=== PATIENT | female | born 1995 | race Caucasian/White ===

== ENCOUNTER 2017-05-17 16:14 | Emergency (ER) | payer OTHER ==
[~2017-05-17] VITALS: Ht 165.1 cm; Wt 112.9 kg
--- NOTE | 2017-05-17 16:43 | PHYS DOC ---
Past Medical History Past Medical History: Asthma Past Surgical History: Alcohol Use: Occasionally Drug Use: None Adult General Chief Complaint Chief Complaint: FEVER HPI HPI Patient is a 21 year old female presents to the emergency room with a 24-hour history of fever. She states that she developed nausea and vomiting today. She has had 6 episodes of vomiting. She reports no abdominal pain. No chest pain. No upper respiratory symptoms. She denies urinary symptoms. Review of Systems Review of Systems Constitutional: Fever without chills Eyes: Denies change in visual acuity, redness, or eye pain [] HENT: Denies nasal congestion or sore throat [] Respiratory: Denies cough or shortness of breath [] Cardiovascular: Denies chest pain, denies edema GI: Denies abdominal pain, nausea, vomiting, bloody stools or diarrhea [] : Denies dysuria or hematuria [] Musculoskeletal: Denies back pain or joint pain [] Integument: Denies rash or skin lesions [] Neurologic: Denies headache, focal weakness or sensory changes [] Endocrine: Denies polyuria or polydipsia [] Current Medications Current Medications Current Medications Medications (Trade) Dose Ordered Sig/Thuan Start Time Stop Time Status Last Admin Dose Admin Ibuprofen (Motrin) 600 mg 1X ONCE 05/17/17 17:00 05/17/17 17:01 DC 05/17/17 17:32 600 MG Ondansetron HCl (Zofran) 4 mg 1X ONCE 05/17/17 17:00 05/17/17 17:01 DC 05/17/17 17:32 4 MG Sodium Chloride 1,000 ml @ 1,000 mls/hr 1X ONCE 05/17/17 17:00 05/17/17 17:59 DC 05/17/17 17:31 1,000 MLS/HR Allergies Allergies Allergies Coded Allergies Type Severity Reaction Last Updated Verified sulfamethoxazole Allergy Intermediate hives 05/17/17 Yes trimethoprim Allergy Intermediate hives 05/17/17 Yes Physical Exam Physical Exam Constitutional: Well developed, well nourished, no acute distress, non-toxic appearance. [] HENT: Normocephalic, atraumatic, bilateral external ears normal, mucous membranes dry. Posterior pharynx erythematous with white exudate on the right tonsil. Uvula is midline. Eyes: PERRLA, EOMI, conjunctiva normal, no discharge. [] Neck: Normal range of motion, no tenderness, supple, no stridor. [] Cardiovascular tachycardia, no murmur [] Lungs & Thorax: Bilateral breath sounds clear to auscultation [] Abdomen: Bowel sounds normal, soft, no tenderness, no masses, no pulsatile masses. [] Skin: Warm, dry, no erythema, no rash. [] Back: No tenderness, no CVA tenderness. [] Extremities: No tenderness, no cyanosis, no clubbing, ROM intact, no edema. [] Neurologic: Alert and oriented X 3, normal motor function, normal sensory function, no focal deficits noted. [] Psychologic: Affect normal, judgement normal, mood normal. [] Current Patient Data Vital Signs Vital Signs Date Time Temp Pulse Resp B/P (MAP) Pulse Ox O2 Delivery O2 Flow Rate FiO2 05/17/17 16:30 99.9 123 22 128/62 (84) 98 Room Air 99.9 Lab Values Laboratory Tests Test 05/17/17 15:55 05/17/17 16:35 05/17/17 17:25 POC Urine HCG, Qualitative Hcg negative (Negative) Urine Collection Type Unknown Urine Color Yellow Urine Clarity Clear Urine pH 6.5 Urine Specific [place] 1.020 Urine Protein 30 mg/dL (NEG-TRACE) Urine Glucose (UA) Negative mg/dL (NEG) Urine Ketones (Stick) Negative mg/dL (NEG) Urine Blood Negative (NEG) Urine Nitrite Negative (NEG) Urine Bilirubin Negative (NEG) Urine Urobilinogen Dipstick 2.0 mg/dL (0.2 mg/dL) Urine Leukocyte Esterase Negative (NEG) Urine RBC Occ /HPF (0-2) Urine WBC Occ /HPF (0-4) Urine Squamous Epithelial Cells Mod /LPF Urine Bacteria Few /HPF (0-FEW) Urine Mucus Marked /LPF White Blood Count 9.9 x10^3/uL (4.0-11.0) Red Blood Count 3.85 x10^6/uL (3.50-5.40) Hemoglobin 11.7 g/dL (12.0-15.5) L Hematocrit 34.6 % (36.0-47.0) L Mean Corpuscular Volume 90 fL (79-100) Mean Corpuscular Hemoglobin 31 pg (25-35) Mean Corpuscular Hemoglobin Concent 34 g/dL (31-37) Red Cell Distribution Width 14.1 % (11.5-14.5) Platelet Count 225 x10^3/uL (140-400) Neutrophils (%) (Auto) 81 % (31-73) H Lymphocytes (%) (Auto) 10 % (24-48) L Monocytes (%) (Auto) 8 % (0-9) Eosinophils (%) (Auto) 0 % (0-3) Basophils (%) (Auto) 0 % (0-3) Neutrophils # (Auto) 8.0 x10^3uL (1.8-7.7) H Lymphocytes # (Auto) 1.0 x10^3/uL (1.0-4.8) Monocytes # (Auto) 0.8 x10^3/uL (0.0-1.1) Eosinophils # (Auto) 0.0 x10^3/uL (0.0-0.7) Basophils # (Auto) 0.0 x10^3/uL (0.0-0.2) Sodium Level 139 mmol/L (136-145) Potassium Level 3.6 mmol/L (3.5-5.1) Chloride Level 105 mmol/L (98-107) Carbon Dioxide Level 24 mmol/L (21-32) Anion Gap 10 (6-14) Blood Urea Nitrogen 12 mg/dL (7-20) Creatinine 1.1 mg/dL (0.6-1.0) H Estimated GFR (Cockcroft-Gault) 63.3 BUN/Creatinine Ratio 11 (6-20) Glucose Level 94 mg/dL (70-99) Calcium Level 8.6 mg/dL (8.5-10.1) Total Bilirubin 0.7 mg/dL (0.2-1.0) Aspartate Amino Transferase (AST) 39 U/L (15-37) H Alanine Aminotransferase (ALT) 52 U/L (14-59) Alkaline Phosphatase 75 U/L (46-116) Total Protein 7.8 g/dL (6.4-8.2) Albumin 3.8 g/dL (3.4-5.0) Albumin/Globulin Ratio 1.0 (1.0-1.7) Laboratory Tests 05/17/17 17:25 Laboratory Tests 05/17/17 17:25 EKG EKG [] Radiology/Procedures Radiology/Procedures [] Course & Med Decision Making Course & Med Decision Making Pertinent Labs and Imaging studies reviewed. (See chart for details) [] The patient is resting comfortably and feels better he is alert and in no distress. Repeat examination is unremarkable and benign; in particular, there is no discomfort at McBurney's point. The history, exam, diagnostic testing and current condition do not suggest acute appendicitis, bowel obstruction, tubo- ovarian abscess, ectopic , ovarian torsion, acute cholecystitis, bowel perforation, major GI bleed, severe diverticulitis, sepsis or other significant pathology to want further testing, continued ED treatment, admission or surgical evaluation at this point. Vital signs been stable. The patient does not have uncontrollable pain, intractable vomiting or other significant symptoms. The patient's condition is stable and appropriate for discharge. The patient will pursue further outpatient evaluation with her primary care provided or other designated or consulting physician is indicated in the discharge instructions. Dragon Disclaimer Dragon Disclaimer This electronic medical record was generated, in whole or in part, using a voice recognition dictation system. Departure Departure Impression: Primary Impression: Viral syndrome Disposition: 01 HOME, SELF-CARE Condition: STABLE Referrals: NO PCP (PCP) Patient Instructions: Viral Syndrome Scripts Ondansetron (ZOFRAN ODT) 4 Mg Tab.rapdis 1 TAB SL Q8HRS, #15 TAB Prov: JERRI KAY APRN 05/17/17 JERRI KAY APRN May 17, 2017 16:43
[2017-05-17 16:54] LABS: BILIRUBIN,URINE NEGATIVE (NEG); GLUCOSE,URINE NEGATIVE (NEG); NITRITE,URINE NEGATIVE (NEG); PH,URINE 6.5; PROTEIN,URINE 30 mg/dL (NEG-TRACE)
[2017-05-17] MEDS ORDERED: ONDANSETRON PF 4 MG/2 ML VIAL. IV ONE (17:00)
[2017-05-17] MEDS ORDERED: IV NORMAL SALINE 1000ML BAG 1,000 ML IV ONE (17:00)
[2017-05-17] MEDS ORDERED: IBUPROFEN 600 MG TABLET. PO ONE (17:00)
[2017-05-17 17:04] LABS: BACTERIA,URINE FEW /HPF (0-FEW); RBC,URINE OCC /HPF (0-2); SQUAMOUS EPITHELIAL CELL,UR MOD /LPF; WBC,URINE OCC /HPF (0-4)
[2017-05-17 17:36] LABS: BASO % 0 % (0-3); EOS % 0 % (0-3); HEMATOCRIT 34.6 % (36.0-47.0); HEMOGLOBIN 11.7 g/dL (12.0-15.5); LYMPH % 10 % (24-48); MEAN CORPUSCULAR HEMOGLOBIN 31 pg (25-35); MEAN CORPUSCULAR HGB CONC 34 g/dL (31-37); MEAN CORPUSCULAR VOLUME 90 fL (79-100); MONO % 8 % (0-9); NEUT % 81 % (31-73); PLATELET COUNT 225 x10^3/uL (140-400); RED BLOOD COUNT 3.85 x10^6/uL (3.50-5.40); RED CELL DISTRIBUTION WIDTH 14.1 % (11.5-14.5); WHITE BLOOD COUNT 9.9 x10^3/uL (4.0-11.0)
[2017-05-17 17:50] LABS: CALCIUM 8.6 mg/dL (8.5-10.1); CREATININE 1.1 mg/dL (0.6-1.0); GFR 63.3; POTASSIUM 3.6 mmol/L (3.5-5.1)
[2017-05-17 17:56] LABS: ALBUMIN 3.8 g/dL (3.4-5.0); TOTAL BILIRUBIN 0.7 mg/dL (0.2-1.0); TOTAL PROTEIN 7.8 g/dL (6.4-8.2)
[2017-05-17] MEDS ORDERED: ONDA4TAB10 SL (18:22)
[2017-05-17 18:30] VITALS: BP 105/55
[2017-05-18 07:54] LABS: NEGATIVE OBC STREP NEG; POSITIVE OBC STREP POS
== END 2017-05-17 18:36 | disposition home or self-care (01) ==
LOC: ER 16:14
DX: B34.9 Viral infection, unspecified (principal); J45.909 Unspecified asthma, uncomplicated; Z88.2 Allergy status to sulfonamides; Z88.8 Allergy status to other drugs, medicaments and biological substances
CPT/HCPCS: 36415; 80053; 81001; 81025; 85027; 87070; 87880; 96361; 96374; 99284; C1887; J2405; J7030

== ENCOUNTER 2017-05-25 03:47 | Emergency (ER) | payer OTHER ==
[~2017-05-25] VITALS: Ht 165.1 cm; Wt 108.9 kg
[~2017-05-25 03:47] MED LIST: ONDA4TAB10 SL
[2017-05-25 03:53] VITALS: BP 144/80
--- NOTE | 2017-05-25 04:14 | PHYS DOC ---
Past Medical History Past Medical History: Asthma Past Surgical History: Alcohol Use: Occasionally Drug Use: None Adult General Chief Complaint Chief Complaint: ABDOMINAL PAIN HPI HPI Patient is a 21 year old F who presents with left-sided flank pain that got worse tonight at work to the point where she was doubled over in pain. He should states it hurts to walk and stand up straight. Patient denies any dysuria or increased urinary frequency. Patient denies a history of kidney stones. Patient denies any fevers. Patient states the pain has gotten better since coming emergency room. Patient denies any chest pain returns of breath. Review of Systems Review of Systems GEN: Denies fevers, chills, sweats HEENT: Denies blurred vision, sore throat CV: Denies chest pain RESP: Denies shortness of air, cough GI: Left flank pain NEURO: Denies confusion, dizziness MSK: Denies weakness, joint pain/swelling Current Medications Current Medications Current Medications Medications (Trade) Dose Ordered Sig/Thuan Start Time Stop Time Status Last Admin Dose Admin Ceftriaxone Sodium 1 gm/ Sodium Chloride 50 ml @ 100 mls/hr Q24H 05/26/17 06:00 Ceftriaxone Sodium 50 ml @ As Directed STK-MED ONCE 05/25/17 05:30 05/25/17 05:31 DC Ketorolac Tromethamine (Toradol) 30 mg 1X ONCE 05/25/17 04:30 05/25/17 04:31 DC 05/25/17 04:32 30 MG Ondansetron HCl (Zofran) 4 mg 1X ONCE 05/25/17 05:00 05/25/17 05:01 DC 05/25/17 04:32 4 MG Sodium Chloride 1,000 ml @ 1,000 mls/hr 1X ONCE 05/25/17 04:30 05/25/17 05:29 DC 05/25/17 04:32 1,000 MLS/HR Allergies Allergies Allergies Coded Allergies Type Severity Reaction Last Updated Verified sulfamethoxazole Allergy Intermediate hives 05/17/17 Yes trimethoprim Allergy Intermediate hives 05/17/17 Yes Physical Exam Physical Exam GEN.: No apparent distress. Alert and oriented. HEENT: Head is normocephalic, atraumatic NECK: Supple. LUNGS: CTAB. HEART: RRR, S1, S2 present. Peripheral pulses intact ABDOMEN: Soft, left flank tenderness palpation with positive CVA tenderness on the left. Positive bowel sounds. EXTREMITIES: Without any cyanosis. NEUROLOGIC: Normal speech, normal tone PSYCHIATRIC: Normal affect, normal mood. SKIN: No ulcerations Current Patient Data Vital Signs Vital Signs Date Time Temp Pulse Resp B/P (MAP) Pulse Ox O2 Delivery O2 Flow Rate FiO2 05/25/17 03:53 98.4 86 16 144/80 (101) 96 Room Air 98.4 Lab Values Laboratory Tests Test 05/25/17 03:08 05/25/17 03:55 05/25/17 04:20 POC Urine HCG, Qualitative Hcg negative (Negative) Urine Collection Type Unknown Urine Color [place] Urine Clarity Clear Urine pH 6.0 Urine Specific [place] 1.025 Urine Protein 100 mg/dL (NEG-TRACE) Urine Glucose (UA) Negative mg/dL (NEG) Urine Ketones (Stick) 15 mg/dL (NEG) Urine Blood Large (NEG) Urine Nitrite Positive (NEG) Urine Bilirubin Small (NEG) Urine Urobilinogen Dipstick 1.0 mg/dL (0.2 mg/dL) Urine Leukocyte Esterase Moderate (NEG) Urine RBC 11-20 /HPF (0-2) Urine WBC 11-20 /HPF (0-4) Urine Squamous Epithelial Cells Mod /LPF Urine Bacteria Many /HPF (0-FEW) Urine Mucus Mod /LPF White Blood Count 10.3 x10^3/uL (4.0-11.0) Red Blood Count 4.10 x10^6/uL (3.50-5.40) Hemoglobin 12.4 g/dL (12.0-15.5) Hematocrit 37.3 % (36.0-47.0) Mean Corpuscular Volume 91 fL (79-100) Mean Corpuscular Hemoglobin 30 pg (25-35) Mean Corpuscular Hemoglobin Concent 33 g/dL (31-37) Red Cell Distribution Width 14.0 % (11.5-14.5) Platelet Count 291 x10^3/uL (140-400) Neutrophils (%) (Auto) 70 % (31-73) Lymphocytes (%) (Auto) 23 % (24-48) L Monocytes (%) (Auto) 4 % (0-9) Eosinophils (%) (Auto) 2 % (0-3) Basophils (%) (Auto) 0 % (0-3) Neutrophils # (Auto) 7.1 x10^3uL (1.8-7.7) Lymphocytes # (Auto) 2.4 x10^3/uL (1.0-4.8) Monocytes # (Auto) 0.5 x10^3/uL (0.0-1.1) Eosinophils # (Auto) 0.2 x10^3/uL (0.0-0.7) Basophils # (Auto) 0.0 x10^3/uL (0.0-0.2) Sodium Level 140 mmol/L (136-145) Potassium Level 3.6 mmol/L (3.5-5.1) Chloride Level 103 mmol/L (98-107) Carbon Dioxide Level 27 mmol/L (21-32) Anion Gap 10 (6-14) Blood Urea Nitrogen 11 mg/dL (7-20) Creatinine 0.9 mg/dL (0.6-1.0) Estimated GFR (Cockcroft-Gault) 79.8 BUN/Creatinine Ratio 12 (6-20) Glucose Level 97 mg/dL (70-99) Calcium Level 9.7 mg/dL (8.5-10.1) Total Bilirubin 0.4 mg/dL (0.2-1.0) Aspartate Amino Transferase (AST) 20 U/L (15-37) Alanine Aminotransferase (ALT) 50 U/L (14-59) Alkaline Phosphatase 73 U/L (46-116) Total Protein 8.3 g/dL (6.4-8.2) H Albumin 4.0 g/dL (3.4-5.0) Albumin/Globulin Ratio 0.9 (1.0-1.7) L Lipase 75 U/L (73-393) Laboratory Tests 05/25/17 04:20 Laboratory Tests 05/25/17 04:20 EKG EKG [] Radiology/Procedures Radiology/Procedures CT abd and pelvis: IMPRESSION: 1. Mild left hydronephrosis and edema of the renal pelvis and proximal ureter. No nephroureterolithiasis is evident. This could be a sequela of a recently passed urinary calculus or infection. 2. The appendix is negative. 3. Gallstones.[] Course & Med Decision Making Course & Med Decision Making Pertinent Labs and Imaging studies reviewed. (See chart for details) ED course: Patient was seen and examined emergency room CBC, CMP, lipase, UA, and urine for a, CT scan of the abdomen and pelvis without contrast was ordered 0520: Pt was updated on results and explained plan to d/c with abx and the need to f/u with PCP in 1-2 days and return if sx get worse. MDM: After reviewing the chart, CC/HPI/PMH, PE, Labs, CT, I do not think the pt has a severe bacterial infection warranting further workup and/or admission. Pt has a UTI with pyelo but is stable for d/c with oral abx and short term f/u with PCP in 1-2 days. Pt is comfortable being d/c home. questions were answered. [] Dragon Disclaimer Dragon Disclaimer This electronic medical record was generated, in whole or in part, using a voice recognition dictation system. Departure Departure Impression: Primary Impression: UTI (urinary tract infection) Disposition: HOME, SELF-CARE Condition: IMPROVED Referrals: FRANCISCO LEONARDO APRN (PCP) Patient Instructions: Urinary Tract Infection Additional Instructions: Please follow up with your family doctor in 1-2 days Scripts Ciprofloxacin Hcl (CIPRO) 500 Mg Tablet 1 TAB PO BID, #20 TAB Prov: FARHANA ARANA DO 05/25/17 FARHANA ARANA DO May 25, 2017 04:14
[2017-05-25] MEDS ORDERED: KETOROLAC TROMETHAMINE 30 MG/ML INJ. IV ONE (04:30)
[2017-05-25] MEDS ORDERED: IV NORMAL SALINE 1000ML BAG 1,000 ML IV ONE (04:30)
[2017-05-25 04:33] LABS: BASO % 0 % (0-3); EOS % 2 % (0-3); HEMATOCRIT 37.3 % (36.0-47.0); HEMOGLOBIN 12.4 g/dL (12.0-15.5); LYMPH # 2.4 x10^3/uL (1.0-4.8); LYMPH % 23 % (24-48); MEAN CORPUSCULAR HEMOGLOBIN 30 pg (25-35); MEAN CORPUSCULAR HGB CONC 33 g/dL (31-37); MEAN CORPUSCULAR VOLUME 91 fL (79-100); MONO % 4 % (0-9); NEUT % 70 % (31-73); PLATELET COUNT 291 x10^3/uL (140-400); WHITE BLOOD COUNT 10.3 x10^3/uL (4.0-11.0)
[2017-05-25 04:37] LABS: BILIRUBIN,URINE SMALL (NEG); GLUCOSE,URINE NEGATIVE (NEG); NITRITE,URINE POSITIVE (NEG); PROTEIN,URINE 100 mg/dL (NEG-TRACE)
[2017-05-25 04:49] LABS: BACTERIA,URINE MANY /HPF (0-FEW)
[2017-05-25 04:50] LABS: CALCIUM 9.7 mg/dL (8.5-10.1); CREATININE 0.9 mg/dL (0.6-1.0); GFR 79.8; POTASSIUM 3.6 mmol/L (3.5-5.1)
[2017-05-25 04:50] LABS: SQUAMOUS EPITHELIAL CELL,UR MOD /LPF
[2017-05-25 04:56] LABS: ALBUMIN/GLOBULIN RATIO 0.9 (1.0-1.7); TOTAL BILIRUBIN 0.4 mg/dL (0.2-1.0); TOTAL PROTEIN 8.3 g/dL (6.4-8.2)
--- NOTE | 2017-05-25 04:59 | RAD ---
CT abdomen and pelvis without contrast TECHNIQUE: Helical noncontrast CT imaging of the abdomen and pelvis was acquired. HISTORY: Left flank pain. Abdomen findings: There is mild left renal hydronephrosis and mild groundglass edema surrounding the renal pelvis proximal ureter however there is no nephroureterolithiasis. Right kidney, adrenal glands, pancreas, spleen and liver are unremarkable. There are suspected gallstones present with indistinct density of the gallbladder present. GI tract including the appendix demonstrates no obstruction or inflammation, distal tip of the appendix is poorly visualized due to surrounding bowel loops in the right ovary. Subcentimeter right lower quadrant mesenteric lymph nodes without inflammatory change. No abdominal fluid. Lung bases and bones are unremarkable. Pelvis findings: No bladder calculi. Uterus, ovaries, rectum and bones are unremarkable. No pelvic fluid. IMPRESSION: 1. Mild left hydronephrosis and edema of the renal pelvis and proximal ureter. No nephroureterolithiasis is evident. This could be a sequela of a recently passed urinary calculus or infection. 2. The appendix is negative. 3. Gallstones. Exposure: One or more of the following individualized dose reduction techniques were utilized for this examination: 1. Automated exposure control 2. Adjustment of the mA and/or kV according to patient size 3. Use of iterative reconstruction technique Electronically signed by: Vinnie Sloan MD (05/25/2017 4:56 AM) [id number]
[2017-05-25] MEDS ORDERED: ONDANSETRON PF 4 MG/2 ML VIAL. IV ONE (05:00)
[2017-05-25] MEDS ORDERED: CIPR500T94 PO (05:27)
== END 2017-05-25 06:07 | disposition home or self-care (01) ==
LOC: ER 03:47
DX: N39.0 Urinary tract infection, site not specified (principal); J45.909 Unspecified asthma, uncomplicated; Z87.442 Personal history of urinary calculi; Z88.2 Allergy status to sulfonamides; Z88.1 Allergy status to other antibiotic agents
CPT/HCPCS: 36415; 74176; 80053; 81001; 81025; 83690; 85027; 87086; 96361; 96365; 96375; 99285; J0690; J1885; J2405; J7030

== ENCOUNTER → 2017-07-25 | Outpatient (CLI) | payer OTHER ==
[~2017-07-25] MED LIST changes: +CIPR500T94 PO
--- NOTE | 2017-07-25 09:48 | KCIC ---
Three-view right foot dated 07/25/2017. No comparison available. Clinical indication: Pain after injury 2 weeks ago. FINDINGS: 3 views of right foot show normal bony alignment. There is slight cortical irregularity and subtle radiolucency near the base of the fifth proximal phalanx, without displacement. There is also a subtle radiolucency through the shaft of the fourth proximal phalanx seen on one view. Osseous structures otherwise intact. IMPRESSION: 1. Subtle areas of radiolucency within the fourth and fifth proximal phalanx described above. Findings could be related to old healed or subacute injury or acute nondisplaced fractures. Recommend physical exam correlation. Electronically signed by: Eldon Rebolledo MD (07/25/2017 9:45 AM) [id number]
== END | disposition home or self-care (01) ==
LOC: KCIC 08:24
PROVIDERS: ATTEND Nurse Practitioner Family
DX: M79.671 Pain in right foot (principal)
CPT/HCPCS: 73630

== ENCOUNTER 2017-12-07 16:41 | Emergency (ER) | payer OTHER ==
[2017-12-07 18:26] LABS: INFLUENZA A PATIENT NEGATIVE (NEGATIVE); OBC FLU VALID
[2017-12-07 18:30] LABS: INFLUENZA B PATIENT POSITIVE (NEGATIVE)
== END 2017-12-07 18:55 | disposition home or self-care (01) ==
LOC: ER 18:55
DX: J10.1 Influenza due to other identified influenza virus with other respiratory manifestations (principal); J45.909 Unspecified asthma, uncomplicated; Z88.1 Allergy status to other antibiotic agents; Z88.2 Allergy status to sulfonamides
CPT/HCPCS: 87804; 87804-59; 99284

== ENCOUNTER → 2018-01-08 | Outpatient (CLI) | payer OTHER | END | disposition home or self-care (01) | LOC: KCIC 13:31 | DX: M25.532 Pain in left wrist (principal) | CPT/HCPCS: 73100 ==

== ENCOUNTER 2018-03-14 18:00 | Emergency (ER) | payer OTHER ==
[2018-03-14 18:47] LABS: BILIRUBIN,URINE NEGATIVE (NEG); CLARITY,URINE CLEAR; COLOR,URINE YELLOW; GLUCOSE,URINE NEGATIVE (NEG); NITRITE,URINE NEGATIVE (NEG); PROTEIN,URINE 30 mg/dL (NEG-TRACE); UROBILINOGEN,URINE 0.2 mg/dL (0.2 mg/dL)
[2018-03-14 18:59] LABS: ADD MAN DIFF? NO
[2018-03-14 19:00] LABS: BASO # 0.1 x10^3/uL (0.0-0.2); BASO % 1 % (0-3); EOS # 0.2 x10^3/uL (0.0-0.7); EOS % 2 % (0-3); HEMATOCRIT 38.3 % (36.0-47.0); LYMPH # 3.1 x10^3/uL (1.0-4.8); LYMPH % 22 % (24-48); MEAN CORPUSCULAR HEMOGLOBIN 31 pg (25-35); MEAN CORPUSCULAR HGB CONC 34 g/dL (31-37); MEAN CORPUSCULAR VOLUME 92 fL (79-100); MONO # 0.6 x10^3/uL (0.0-1.1); MONO % 4 % (0-9); NEUT # 9.8 x10^3uL (1.8-7.7); NEUT % 71 % (31-73); PLATELET COUNT 290 x10^3/uL (140-400); RED BLOOD COUNT 4.16 x10^6/uL (3.50-5.40); RED CELL DISTRIBUTION WIDTH 14.9 % (11.5-14.5); WHITE BLOOD COUNT 13.7 x10^3/uL (4.0-11.0)
[2018-03-14 19:01] LABS: BACTERIA,URINE MODERATE /HPF (0-FEW); SQUAMOUS EPITHELIAL CELL,UR OCC /LPF
[2018-03-14] MEDS: ONDANSETRON ODT 4 MG TAB.RAPDIS. PO (19:01)
[2018-03-14] MEDS: MORPHINE SULFATE 4 MG/ML DISP.SYRIN. IV (19:01)
[2018-03-14 19:13] LABS: ANION GAP 10 (6-14); BLOOD UREA NITROGEN 14 mg/dL (7-20); BUN/CREATININE RATIO 16 (6-20); CALCIUM 8.6 mg/dL (8.5-10.1); CARBON DIOXIDE 26 mmol/L (21-32); CHLORIDE 103 mmol/L (98-107); CREATININE 0.9 mg/dL (0.6-1.0); GLUCOSE 90 mg/dL (70-99); POTASSIUM 4.1 mmol/L (3.5-5.1); SODIUM 139 mmol/L (136-145)
[2018-03-14 19:15] LABS: NEG OBC UR NEG; POS OBC UR POS; U PREG PATIENT NEGATIVE (NEG)
[2018-03-14 19:27] LABS: ALBUMIN 3.7 g/dL (3.4-5.0); ALBUMIN/GLOBULIN RATIO 0.9 (1.0-1.7); ALK PHOS 66 U/L (46-116); ALT (SGPT) 20 U/L (14-59); AST (SGOT) 16 U/L (15-37); TOTAL BILIRUBIN 0.4 mg/dL (0.2-1.0); TOTAL PROTEIN 7.6 g/dL (6.4-8.2)
[2018-03-14] MEDS: fentaNYL PF VIAL 100 MCG/2 ML VIAL IV (19:52)
== END 2018-03-14 21:38 | disposition home or self-care (01) ==
LOC: ER 21:38
DX: N39.0 Urinary tract infection, site not specified (principal); J45.909 Unspecified asthma, uncomplicated; Z88.2 Allergy status to sulfonamides; Z88.5 Allergy status to narcotic agent
CPT/HCPCS: 36415; 74176; 80053; 81001; 81025; 85025; 87086; 87186; 96365; 96375; 99285-25; J0690; J2270; J3010; Q0162

== ENCOUNTER 2018-05-21 18:46 | Emergency (ER) | payer OTHER ==
[2018-05-21 19:48] LABS: URINE HCG POC HCG NEGATIVE (Negative)
[2018-05-21 19:48] LABS: BILIRUBIN,URINE SMALL (NEG); CLARITY,URINE CLEAR; COLOR,URINE AMBER; GLUCOSE,URINE NEGATIVE (NEG); NITRITE,URINE NEGATIVE (NEG); PH,URINE 7.5; PROTEIN,URINE 30 mg/dL (NEG-TRACE)
[2018-05-21 19:54] LABS: SQUAMOUS EPITHELIAL CELL,UR MOD /LPF
[2018-05-21 19:55] LABS: BACTERIA,URINE FEW /HPF (0-FEW); RBC,URINE OCC /HPF (0-2); WBC,URINE OCC /HPF (0-4)
[2018-05-21] MEDS: ORPHENADRINE CITRATE 60 MG/2 ML VIAL. IM (20:00)
[2018-05-21] MEDS: KETOROLAC 60 MG/2 ML INJ. IM (20:01)
== END 2018-05-21 20:31 | disposition home or self-care (01) ==
LOC: ER 18:46
DX: M54.6 Pain in thoracic spine (principal); R11.2 Nausea with vomiting, unspecified; G89.29 Other chronic pain; J45.909 Unspecified asthma, uncomplicated; Z88.2 Allergy status to sulfonamides; Z88.5 Allergy status to narcotic agent; Z88.8 Allergy status to other drugs, medicaments and biological substances
CPT/HCPCS: 81001; 81025; 96372; 99284-25; J1885; J2360

== ENCOUNTER 2019-11-04 01:12 | Emergency (ER) | payer MEDICAID, OTHER ==
[~2019-11-04] VITALS: Ht 162.6 cm; Wt 108.9 kg
[~2019-11-04 01:12] MED LIST changes: +NAPR500T8 PO; +ORPH100T PO; +OSEL75CA PO
[2019-11-04 01:41] VITALS: BP 137/79
[2019-11-04] MEDS ORDERED: PROC10TA57 PO (03:13)
[2019-11-04] MEDS ORDERED: PROCHLORPERAZINE 5 MG TABLET. PO ONE (03:30)
[2019-11-04] MEDS ORDERED: ACETAMINOPHEN 500 MG TABLET PO ONE (03:30)
--- NOTE | 2019-11-04 03:48 | PHYS DOC ---
Past Medical History Past Medical History: Asthma Past Surgical History: Cholecystectomy, Alcohol Use: Occasionally Drug Use: None Adult General Chief Complaint Chief Complaint: HEADACHE HPI HPI Patient is a 23 year old strep migraine headaches who presents with persistent left retro-orbital/parietal migraine-like headache starting earlier yesterday. He was to severe. Patient took 2 Excedrin migraine prior to ED arrival in is significantly improved and is now 2 out of 10. Patient denies nausea, vomiting, change of vision, neck pain. No fever chills, rash. Patient currently on her menstrual period.[] Review of Systems Review of Systems Review of systems as per history of present illness. All other review symptoms are negative All other systems were reviewed and found to be within normal limits, except as documented in this note. Current Medications Current Medications Current Medications Medications (Trade) Dose Ordered Sig/Thuan Start Time Stop Time Status Last Admin Dose Admin Acetaminophen (Tylenol) 1,000 mg 1X ONCE 11/04/19 03:30 11/04/19 03:31 DC 11/04/19 03:36 1,000 MG Prochlorperazine Maleate (Compazine) 10 mg ONCE ONCE 11/04/19 03:30 11/04/19 03:31 DC 11/04/19 03:36 10 MG Allergies Allergies Allergies Coded Allergies Type Severity Reaction Last Updated Verified sulfamethoxazole Allergy Intermediate hives 05/17/17 Yes trimethoprim Allergy Intermediate hives 05/17/17 Yes hydrocodone Allergy Unknown 03/14/18 Yes Physical Exam Physical Exam Constitutional: Well developed, well nourished, no acute distress, non-toxic appearance. [] HENT: Normocephalic, atraumatic, bilateral external ears normal, oropharynx moist, no oral exudates, nose normal. [] Eyes: PERRLA, EOMI, conjunctiva normal, no discharge. [] Neck: Normal range of motion, no tenderness, supple, no stridor. [] Cardiovascular:Heart rate regular rhythm, no murmur [] Lungs & Thorax: Bilateral breath sounds clear to auscultation [] Abdomen: Bowel sounds normal, soft, no tenderness, no masses, no pulsatile mass es. [] Skin: Warm, dry, no erythema, no rash. [] Back: No tenderness, no CVA tenderness. [] Extremities: No tenderness, no cyanosis, no clubbing, ROM intact, no edema. [] Neurologic: Alert and oriented X 3, normal motor function, normal sensory function, no focal deficits noted. [] Psychologic: Affect normal, judgement normal, mood normal. [] Current Patient Data Vital Signs Vital Signs Date Time Temp Pulse Resp B/P (MAP) Pulse Ox O2 Delivery O2 Flow Rate FiO2 11/04/19 01:41 98.1 81 16 137/79 (98) 98 Room Air 98.1 EKG EKG [] Radiology/Procedures Radiology/Procedures [] Course & Med Decision Making Course & Med Decision Making Pertinent Labs and Imaging studies reviewed. (See chart for details) [Migraine-like headache. Compazine and Tylenol given. Will treat supportively with PCP follow-up.] Dragon Disclaimer Dragon Disclaimer This electronic medical record was generated, in whole or in part, using a voice recognition dictation system. Departure Departure Impression: Primary Impression: Migraine Disposition: HOME, SELF-CARE Condition: STABLE Referrals: FRANCISCO LEONARDO APRN (PCP) Patient Instructions: Migraine Headache, Luri-ru-Gehr Additional Instructions: Please go home and rest. Take Excedrin Migraine for headache and dizziness needed for additional relief. Follow-up with your PCP for reevaluation.. Scripts Prochlorperazine Maleate (Compazine) 10 Mg Tablet 10 MG PO Q8HRS for NAUSEA MDD 3, #10 TAB Prov: EARL MESSINA DO 11/04/19 EARL MESSINA DO Nov 04, 2019 03:48
== END 2019-11-04 03:38 | disposition home or self-care (01) ==
LOC: ER 01:12
DX: G43.909 Migraine, unspecified, not intractable, without status migrainosus (principal); J45.909 Unspecified asthma, uncomplicated; Z88.1 Allergy status to other antibiotic agents; Z88.2 Allergy status to sulfonamides; Z88.5 Allergy status to narcotic agent
CPT/HCPCS: 99283; Q0164

== ENCOUNTER 2019-11-25 17:11 | Emergency (ER) | payer MEDICAID ==
[~2019-11-25] VITALS: Ht 162.6 cm; Wt 109.0 kg
[~2019-11-25 17:11] MED LIST changes: +PROC10TA57 PO
[2019-11-25] MEDS ORDERED: IV NORMAL SALINE 1000ML BAG 1,000 ML IV SCH (18:02)
--- NOTE | 2019-11-25 18:13 | PHYS DOC ---
Past Medical History Past Medical History: Asthma Past Surgical History: Cholecystectomy, Alcohol Use: Occasionally Drug Use: None Adult General Chief Complaint Chief Complaint: ABDOMINAL PAIN HPI HPI Patient is a 23 year old female who presents with states 2 years ago she was at and he took out her gallbladder but left a "gall stone that was stuck in between a bile duct by her liver" per the patient. Patient states she is was to go back and have it removed but she never did. She states since then she would've episodes where she will have upper abdominal pain and she will vomit a few times and then she will feel better and the pain will go away. Patient states today the pain is not going away and she has vomited many times. Patient states that this time she is not having any pain. Review of Systems Review of Systems GI: upper abdominal pain, nausea, vomiting, denies bloody stools or diarrhea [] All other systems were reviewed and found to be within normal limits, except as documented in this note. Current Medications Current Medications Current Medications Medications (Trade) Dose Ordered Sig/Thuan Start Time Stop Time Status Last Admin Dose Admin Info (CONTRAST GIVEN -- Rx MONITORING) 1 each PRN DAILY PRN 11/25/19 19:00 11/27/19 18:59 Iohexol (Omnipaque 300 Mg/ml) 75 ml 1X ONCE 11/25/19 19:00 11/25/19 19:01 DC 11/25/19 19:01 75 ML Ondansetron HCl (Zofran) 4 mg 1X ONCE 11/25/19 18:15 11/25/19 18:16 DC 11/25/19 18:36 4 MG Sodium Chloride 1,000 ml @ 1,000 mls/hr Q1H 11/25/19 18:02 11/25/19 19:01 DC 11/25/19 18:35 1,000 MLS/HR Allergies Allergies Allergies Coded Allergies Type Severity Reaction Last Updated Verified sulfamethoxazole Allergy Intermediate hives 05/17/17 Yes trimethoprim Allergy Intermediate hives 05/17/17 Yes hydrocodone Allergy Unknown 03/14/18 Yes Physical Exam Physical Exam Constitutional: Well developed, well nourished, no acute distress, non-toxic appearance. [] HENT: Normocephalic, atraumatic, bilateral external ears normal, oropharynx moist, no oral exudates, nose normal. [] Eyes: PERRLA, EOMI, conjunctiva normal, no discharge. [] Neck: Normal range of motion, no tenderness, supple, no stridor. [] Cardiovascular:Heart rate regular rhythm, no murmur [] Lungs & Thorax: Bilateral breath sounds clear to auscultation [] Abdomen: Bowel sounds normal, soft, no tenderness, no masses, no pulsatile masses. [] Skin: Warm, dry, no erythema, no rash. [] Back: No tenderness, no CVA tenderness. [] Extremities: No tenderness, no cyanosis, no clubbing, ROM intact, no edema. [] Neurologic: Alert and oriented X 3, normal motor function, normal sensory function, no focal deficits noted. [] Psychologic: Affect normal, judgement normal, mood normal. Normal Physical Exam [] Current Patient Data Vital Signs Vital Signs Date Time Temp Pulse Resp B/P (MAP) Pulse Ox O2 Delivery O2 Flow Rate FiO2 11/25/19 18:09 98.2 104 17 125/69 (87) 100 Room Air 98.2 Lab Values Laboratory Tests Test 11/25/19 18:14 11/25/19 18:27 11/25/19 18:33 Urine Collection Type Void Urine Color Yellow Urine Clarity Hazy Urine pH 8.0 Urine Specific Pillow 1.020 Urine Protein Negative mg/dL (NEG-TRACE) Urine Glucose (UA) Negative mg/dL (NEG) Urine Ketones (Stick) Negative mg/dL (NEG) Urine Blood Negative (NEG) Urine Nitrite Negative (NEG) Urine Bilirubin Negative (NEG) Urine Urobilinogen Dipstick 1.0 mg/dL (0.2 mg/dL) Urine Leukocyte Esterase Moderate (NEG) Urine RBC 0 /HPF (0-2) Urine WBC 1-4 /HPF (0-4) Urine Squamous Epithelial Cells Many /LPF Urine Bacteria Many /HPF (0-FEW) Urine Mucus Marked /LPF Urine Opiates Screen Neg (NEG) Urine Methadone Screen Neg (NEG) Urine Barbiturates Neg (NEG) Urine Phencyclidine Screen Neg (NEG) Urine Amphetamine/Methamphetamine Neg (NEG) Urine Benzodiazepines Screen Neg (NEG) Urine Cocaine Screen Neg (NEG) Urine Cannabinoids Screen Neg (NEG) Urine Ethyl Alcohol Neg (NEG) White Blood Count 11.6 x10^3/uL (4.0-11.0) H Red Blood Count 4.34 x10^6/uL (3.50-5.40) Hemoglobin 13.0 g/dL (12.0-15.5) Hematocrit 39.3 % (36.0-47.0) Mean Corpuscular Volume 91 fL (79-100) Mean Corpuscular Hemoglobin 30 pg (25-35) Mean Corpuscular Hemoglobin Concent 33 g/dL (31-37) Red Cell Distribution Width 14.0 % (11.5-14.5) Platelet Count 253 x10^3/uL (140-400) Neutrophils (%) (Auto) 82 % (31-73) H Lymphocytes (%) (Auto) 12 % (24-48) L Monocytes (%) (Auto) 5 % (0-9) Eosinophils (%) (Auto) 1 % (0-3) Basophils (%) (Auto) 0 % (0-3) Neutrophils # (Auto) 9.6 x10^3/uL (1.8-7.7) H Lymphocytes # (Auto) 1.4 x10^3/uL (1.0-4.8) Monocytes # (Auto) 0.6 x10^3/uL (0.0-1.1) Eosinophils # (Auto) 0.1 x10^3/uL (0.0-0.7) Basophils # (Auto) 0.0 x10^3/uL (0.0-0.2) Sodium Level 140 mmol/L (136-145) Potassium Level 4.5 mmol/L (3.5-5.1) Chloride Level 104 mmol/L (98-107) Carbon Dioxide Level 26 mmol/L (21-32) Anion Gap 10 (6-14) Blood Urea Nitrogen 11 mg/dL (7-20) Creatinine 0.7 mg/dL (0.6-1.0) Estimated GFR (Cockcroft-Gault) 104.6 BUN/Creatinine Ratio 16 (6-20) Glucose Level 92 mg/dL (70-99) Calcium Level 8.8 mg/dL (8.5-10.1) Total Bilirubin 0.4 mg/dL (0.2-1.0) Aspartate Amino Transferase (AST) 19 U/L (15-37) Alanine Aminotransferase (ALT) 15 U/L (14-59) Alkaline Phosphatase 71 U/L (46-116) Total Protein 7.1 g/dL (6.4-8.2) Albumin 3.6 g/dL (3.4-5.0) Albumin/Globulin Ratio 1.0 (1.0-1.7) Lipase 57 U/L (73-393) L POC Urine HCG, Qualitative Hcg negative (Negative) Laboratory Tests 11/25/19 18:27 Laboratory Tests 11/25/19 18:27 EKG EKG [] Radiology/Procedures Radiology/Procedures [] Impressions: [facility] [address] [place] [address] IMAGING REPORT Signed PATIENT: ELIZABETH MARROQUIN ACCOUNT: [id number] : 1995 LOCATION: ER AGE: 23 SEX: F EXAM STATUS: REG ER ORD. PHYSICIAN: GIOVANNI GAYTAN APRN REASON: right upper abd pain PROCEDURE: CT ABD PELV W/ IV CONTRST ONLY EXAM: CT Abdomen and Pelvis with IV contrast CLINICAL HISTORY: Right upper abdominal pain COMPARISON: none TECHNIQUE: Helical CT of the abdomen and pelvis was performed following the administration of intravenous contrast. Axial, coronal and sagittal reformatted images were generated. PQRS compliance statement - One or more of the following individualized dose reduction techniques were utilized for this study: 1. Automated exposure control 2. Adjustment of the mA and/or kV according to patient size 3. Use of iterative reconstruction technique FINDINGS: Lower chest: Lung bases are clear. Abdomen and Pelvis: No focal liver lesion. Liver measures 18.8 cm in length. Accounting for postcholecystectomy change, no biliary ductal dilatation. Spleen is mildly enlarged measuring 13 cm in AP dimension. Pancreas is unremarkable. Symmetric nephrograms. No focal renal lesion. No hydronephrosis. No hydroureter. Bladder is unremarkable. Moderate to large volume colonic stool content is seen. Appendix is normal. No small or large bowel dilatation. No evidence for bowel obstruction. Small fat-containing periumbilical hernia is seen. Uterus and adnexa are grossly unremarkable. Aorta is normal in caliber. No abdominal or pelvic lymphadenopathy. However, a few mildly prominent mesenteric lymph nodes are seen, particularly in the right lower quadrant. No abdominal or pelvic ascites. Bones: No aggressive osseous lesion is seen. IMPRESSION: 1. Borderline hepatosplenomegaly. 2. Accounting for postcholecystectomy change, no biliary ductal dilatation. 3. No bowel obstruction. 4. A few mildly prominent mesenteric lymph nodes are seen, possibly reactive or changes of mesenteric adenitis. Electronically signed by: Seferino Fam MD (11/25/2019 7:33 PM) [id number] DICTATED and SIGNED BY: SEFERINO FAM MD DATE: 11/25/191932 Course & Med Decision Making Course & Med Decision Making Alert and oriented. Speaks in full clear sentences. Skin pink warm and dry. Vital signs within normal limits. Abdomen is soft and nontender. Lungs are clear to auscultation all lobes. Ambulatory with a steady gait. No extremity swelling. Patient denies chest pain, shortness of air, diarrhea, headache, dizziness, visual changes, weakness, numbness or tingling. IMPRESSION: 1. Borderline hepatosplenomegaly. 2. Accounting for postcholecystectomy change, no biliary ductal dilatation. 3. No bowel obstruction. 4. A few mildly prominent mesenteric lymph nodes are seen, possibly reactive or changes of mesenteric adenitis. Patient will be treated for a UTI and to Follow up with the [facility] surgeon that did her Galbladder surgery or GI. Dragon Disclaimer Dragon Disclaimer This electronic medical record was generated, in whole or in part, using a voice recognition dictation system. Departure Departure Impression: Primary Impression: UTI (urinary tract infection) Additional Impressions: Nausea & vomiting Abdominal pain Disposition: 01 HOME, SELF-CARE Condition: STABLE Referrals: FRANCISCO LEONARDO APRN (PCP) JAY JAY KAPLAN MD Patient Instructions: Urinary Tract Infection Additional Instructions: Take medication as prescribed. Follow up with your primary care physician. Drink plenty of fluids. Slowly advance her diet. Scripts Tramadol Hcl (TRAMADOL HCL) 50 Mg Tablet 50 MG PO Q6HRS PRN for PAIN, #8 TAB Prov: GIOVANNI GAYTAN APRN 11/25/19 Cephalexin (KEFLEX) 500 Mg Capsule 1 CAP PO BID for 7 Days, #14 CAP 0 Refills Prov: GIOVANNI GAYTAN APRN 11/25/19 Ondansetron (ONDANSETRON ODT) 4 Mg Tab.rapdis 1 TAB PO PRN Q6-8HRS, #20 TAB Prov: GIOVANNI GAYTAN [employer] 11/25/19 Problem Qualifiers Primary Impression: UTI (urinary tract infection) Urinary tract infection type: site unspecified Hematuria presence: without hematuria Qualified Codes: N39.0 - Urinary tract infection, site not specified Additional Impressions: Nausea & vomiting Vomiting type: unspecified Vomiting Intractability: non-intractable Qual ified Codes: R11.2 - Nausea with vomiting, unspecified Abdominal pain Abdominal location: upper abdomen, unspecified Qualified Codes: R10.10 - Upper abdominal pain, unspecified GIOVANNI GAYTAN [employer] Nov 25, 2019 18:13
[2019-11-25] MEDS ORDERED: ONDANSETRON PF 4 MG/2 ML VIAL. IV ONE (18:15)
[2019-11-25 18:37] LABS: BASO % 0 % (0-3); EOS # 0.1 x10^3/uL (0.0-0.7); EOS % 1 % (0-3); HEMATOCRIT 39.3 % (36.0-47.0); LYMPH # 1.4 x10^3/uL (1.0-4.8); LYMPH % 12 % (24-48); MEAN CORPUSCULAR HEMOGLOBIN 30 pg (25-35); MEAN CORPUSCULAR HGB CONC 33 g/dL (31-37); MEAN CORPUSCULAR VOLUME 91 fL (79-100); MONO # 0.6 x10^3/uL (0.0-1.1); MONO % 5 % (0-9); NEUT # 9.6 x10^3/uL (1.8-7.7); NEUT % 82 % (31-73); PLATELET COUNT 253 x10^3/uL (140-400); RED BLOOD COUNT 4.34 x10^6/uL (3.50-5.40); WHITE BLOOD COUNT 11.6 x10^3/uL (4.0-11.0)
[2019-11-25 18:40] LABS: BILIRUBIN,URINE NEGATIVE (NEG); COLOR,URINE YELLOW; NITRITE,URINE NEGATIVE (NEG); PROTEIN,URINE NEGATIVE (NEG-TRACE)
[2019-11-25 18:45] LABS: CLARITY,URINE HAZY
[2019-11-25 18:49] LABS: BACTERIA,URINE MANY /HPF (0-FEW); RBC,URINE 0 /HPF (0-2); SQUAMOUS EPITHELIAL CELL,UR MANY /LPF
[2019-11-25 18:49] LABS: CALCIUM 8.8 mg/dL (8.5-10.1); CREATININE 0.7 mg/dL (0.6-1.0); GFR 104.6; POTASSIUM 4.5 mmol/L (3.5-5.1)
[2019-11-25 18:50] VITALS: BP 113/66
[2019-11-25 18:51] LABS: AMPHETAMINE/METHAMPHETAMINE NEG (NEG); BARBITURATES NEG (NEG); BENZODIAZEPINES NEG (NEG); CANNABINOIDS NEG (NEG); COCAINE NEG (NEG); METHADONE NEG (NEG); OPIATES NEG (NEG); PHENCYCLIDINE NEG (NEG)
[2019-11-25 18:55] LABS: ALBUMIN 3.6 g/dL (3.4-5.0); TOTAL BILIRUBIN 0.4 mg/dL (0.2-1.0); TOTAL PROTEIN 7.1 g/dL (6.4-8.2)
[2019-11-25] MEDS ORDERED: CONTRAST GIVEN. MC PRN (19:00)
[2019-11-25] MEDS ORDERED: IOHEXOL 300 MG/ML 100ML VIAL. IV ONE (19:00)
--- NOTE | 2019-11-25 19:36 | RAD ---
EXAM: CT Abdomen and Pelvis with IV contrast CLINICAL HISTORY: Right upper abdominal pain COMPARISON: none TECHNIQUE: Helical CT of the abdomen and pelvis was performed following the administration of intravenous contrast. Axial, coronal and sagittal reformatted images were generated. PQRS compliance statement - One or more of the following individualized dose reduction techniques were utilized for this study: 1. Automated exposure control 2. Adjustment of the mA and/or kV according to patient size 3. Use of iterative reconstruction technique FINDINGS: Lower chest: Lung bases are clear. Abdomen and Pelvis: No focal liver lesion. Liver measures 18.8 cm in length. Accounting for postcholecystectomy change, no biliary ductal dilatation. Spleen is mildly enlarged measuring 13 cm in AP dimension. Pancreas is unremarkable. Symmetric nephrograms. No focal renal lesion. No hydronephrosis. No hydroureter. Bladder is unremarkable. Moderate to large volume colonic stool content is seen. Appendix is normal. No small or large bowel dilatation. No evidence for bowel obstruction. Small fat-containing periumbilical hernia is seen. Uterus and adnexa are grossly unremarkable. Aorta is normal in caliber. No abdominal or pelvic lymphadenopathy. However, a few mildly prominent mesenteric lymph nodes are seen, particularly in the right lower quadrant. No abdominal or pelvic ascites. Bones: No aggressive osseous lesion is seen. IMPRESSION: 1. Borderline hepatosplenomegaly. 2. Accounting for postcholecystectomy change, no biliary ductal dilatation. 3. No bowel obstruction. 4. A few mildly prominent mesenteric lymph nodes are seen, possibly reactive or changes of mesenteric adenitis. Electronically signed by: Seferino Zuniga MD (11/25/2019 7:33 PM) [id number]
[2019-11-25] MEDS ORDERED: CEPH-264 PO (19:44)
[2019-11-25] MEDS ORDERED: ONDA4TAB12 PO (19:44)
[2019-11-25] MEDS ORDERED: TRAM50TA PO (19:44)
== END 2019-11-25 20:00 | disposition home or self-care (01) ==
LOC: ER 17:11
DX: N39.0 Urinary tract infection, site not specified (principal); R11.2 Nausea with vomiting, unspecified; J45.909 Unspecified asthma, uncomplicated; Z90.49 Acquired absence of other specified parts of digestive tract; Z88.1 Allergy status to other antibiotic agents; Z88.2 Allergy status to sulfonamides; Z88.5 Allergy status to narcotic agent
CPT/HCPCS: 36415; 74177; 80053; 80307; 81001; 81025; 83690; 85025; 87086; 96361; 96374; 99285; J2405; J7030; Q9967

== ENCOUNTER 2020-05-09 23:31 | Emergency (ER) | payer MEDICAID ==
[~2020-05-09] VITALS: Ht 165.1 cm; Wt 113.0 kg
[~2020-05-09 23:31] MED LIST changes: +CEPH-264 PO; +ONDA4TAB12 PO; +TRAM50TA PO
[2020-05-09 23:49] VITALS: BP 133/76
--- NOTE | 2020-05-09 23:49 | PHYS DOC ---
Past Medical History Past Medical History: Asthma, Gallstones Past Surgical History: Cholecystectomy, Smoking Status: Current Every Day Smoker Alcohol Use: Occasionally Drug Use: None General Adult EDM: Chief Complaint: ASTHMA HPI: HPI: 24-year-old female presents with cough and congestion and mild shortness of breath feels similar to her prior asthma. Patient denies any pain. Patient was last on steroids 2 months ago. Patient denies any fevers or or known sick contacts. Review of Systems: Review of Systems: Constitutional: Denies fever or chills. [] Eyes: Denies change in visual acuity. [] HENT: Complains of nasal congestion Respiratory: cough or mild shortness of breath. [] Cardiovascular: Denies chest pain or edema. [] GI: Denies abdominal pain, nausea, vomiting, bloody stools or diarrhea. [] : Denies dysuria. [] Musculoskeletal: Denies back pain or joint pain. [] Integument: Denies rash. [] Neurologic: Denies headache, focal weakness or sensory changes. [] Psychiatric: Denies depression or anxiety. [] Heart Score: Risk Factors: Risk Factors: DM, Current or recent (<one month) smoker, HTN, HLP, family history of CAD, obesity. Risk Scores: Score 0 - 3: 2.5% MACE over next 6 weeks - Discharge Home Score 4 - 6: 20.3% MACE over next 6 weeks - Admit for Clinical Observation Score 7 - 10: 72.7% MACE over next 6 weeks - Early Invasive Strategies Allergies: Allergies: Allergies Coded Allergies Type Severity Reaction Last Updated Verified sulfamethoxazole Allergy Intermediate hives 05/17/17 Yes trimethoprim Allergy Intermediate hives 05/17/17 Yes hydrocodone Allergy Unknown 03/14/18 Yes Physical Exam: PE: Constitutional: Well developed, well nourished, no acute distress, non-toxic appearance. [] HENT: Normocephalic, atraumatic, no trismus Eyes: PERRLA, EOMI, conjunctiva normal, no discharge. [] Neck: Normal range of motion, no tenderness, supple, no stridor. [] Cardiovascular:Heart rate regular rhythm, no murmur [] Lungs & Thorax: Bilateral breath sounds clear to auscultation [] Abdomen: Bowel sounds normal, soft, no tenderness, no masses, no pulsatile masses. [] Skin: Warm, dry, no erythema, no rash. [] Back: No tenderness, no CVA tenderness. [] Extremities: No tenderness, no cyanosis, no clubbing, ROM intact, no edema. [] Neurologic: Alert and oriented X 3, normal motor function, normal sensory function, no focal deficits noted. [] Psychologic: Affect normal, judgement normal, mood normal. [] EKG: EKG: [] Radiology/Procedures: Radiology/Procedures: [] Course & Med Decision Making: Course & Med Decision Making COVID-19 CRITERIA: The patient was evaluated during the global COVID-19 pandemic, and that diagnosis was suspected/considered upon their initial presentation. Their evaluation, treatment and testing was consistent with current guidelines for patients who present with complaints or symptoms that may be related to COVID-19. Pertinent Labs and Imaging studies reviewed. (See chart for details) [Patient with history of asthma and symptoms are similar to prior asthma. Patient with some mild decreased breath sounds on exam but no significant wheezing. Due to his background global pandemic we are not giving people nebulizers that are not in extremiS PERC RULE Age =50 No0 HR =100 No0 O2 sat on room air <95% No0 Unilateral leg swelling No0 Hemoptysis No0 Recent surgery or trauma Surgery or trauma =4 weeks ago requiring treatment with general anesthesia No0 Prior PE or DVT No0 Hormone use Oral contraceptives, hormone replacement or estrogenic hormones use in males or female patients No0 0 criteria No need for further workup, as <2% chance of PE. If no criteria are positive and clinicians pre-test probability is <15%, PERC Rule criteria are satisfied. Emerson Disclaimer: Emerson Disclaimer: This electronic medical record was generated, in whole or in part, using a voice recognition dictation system. Departure Departure Impression: Primary Impression: Asthma exacerbation Disposition: HOME, SELF-CARE Condition: STABLE Referrals: FRANCISCO LEONARDO APRN (PCP) 2 to 3 days Patient Instructions: Asthma, Adult Additional Instructions: EMERGENCY DEPARTMENT GENERAL DISCHARGE INSTRUCTIONS Thank you for coming to [facility] Emergency Department (ED) today and trusting us with you care. We trust that you had a positivie experience in our Emergency Department. If you wish to speak to the department management, you may call the sirector at [phone]. YOUR FOLLOW UP INSTRUCTIONS ARE FOLLOWS: 1. Do you have a private Doctor? If you do not have a private doctir, please ask for a resource list of physicians or clinics that may be able to assist you with follow up care. 2. The Emergency Physicain has interpreted your x-rays. The X-Ray specialist will also review them. If there is a change in the findingd, you will be notified in 48 hours when at all possible. 3. A lab test or culture has been done, your results will be reviewed and you will be notified if you need a change in treatment. ADDITIONAL INSTRUCTIONS AND INFORMATION: 1. Your care today has been supervised by a physician who is specially trained in emergency care. Many problems require more than one evaluation for a complete diagnosis and treatment. We recommend that you schedule your follow up appointment as recommended to ensure complete treatment of you illness or injury. If you are unable to obtain follow up care and continue to have a problem, or if your consition worsens, we recommend that you return to the ED. 2. We are not able to safelymdetermine your condition over the phone nor are we able to give sound medical advice over the phone. For these safety reasons, if you call for medical advice we will ask you to come to the ED for further evaluation. 3. If you have any questions regarding these discharge instructions please call the ED at [phone]. SAFETY INFORMATION: In the interest of safety, wellness, and injury prevention; we encourage you to wear your sealbelt, if you smoke; quite smoking, and we encourage family to use a protective helmet for bicycling and other sporting events that present an increased risk for head injusry. IF YOUR SYMPTOMS WORSEN OR NEW SYMPTOMS DEVELOP, OR YOU HAVE CONCERNS ABOUT YOUR CONDITION; OR IF YOUR CONDITION WORSENS WHILE YOU ARE WAITING FOR YOUR FOLLOW UP APPOINTME NT; EITHER CONTACT YOUR PRIMARY CARE DOCTOR, THE PHYSICIAN WHOSE NAME AND NUMBER YOU WERE GIVEN, OR RETURN TO THE ED IMMEDIATELY. Scripts Prednisone (PREDNISONE) 20 Mg Tablet 3 TAB PO DAILY for 5 Days, #15 TAB Prov: JAY JAY TALAVERA MD 05/10/20 Albuterol Sulfate (VENTOLIN HFA INHALER) 18 Gm Hfa.aer.ad 4 PUFF INH Q4HRS PRN for WHEEZING for 5 Days, #1 INHALER 0 Refills Prov: JAY JAY TALAVERA MD 05/10/20 Justicifation of Admission Dx: Justifications for Admission: Justification of Admission Dx: No JAY JAY TALAVERA MD May 09, 2020 23:49
[2020-05-10] MEDS ORDERED: PRED20TA PO (00:05)
[2020-05-10] MEDS ORDERED: VENTOLIN HFA18 GM INH (00:05)
== END 2020-05-10 00:34 | disposition home or self-care (01) ==
LOC: ER 23:31
DX: J45.901 Unspecified asthma with (acute) exacerbation (principal); F17.200 Nicotine dependence, unspecified, uncomplicated; Z88.1 Allergy status to other antibiotic agents; Z88.2 Allergy status to sulfonamides; Z88.5 Allergy status to narcotic agent
CPT/HCPCS: 99283

== ENCOUNTER → 2022-03-21 | Outpatient (CLI) | payer OTHER ==
[~2022-03-21] MED LIST changes: +PRED20TA PO; +VENTOLIN HFA18 GM INH
--- NOTE | 2022-03-21 16:58 | KCIC ---
Three-view left foot dated 03/21/2022. No comparison available. CLINICAL INDICATION: Pain. FINDINGS: 3 views left foot show normal bony alignment. No displaced fracture. No periostitis or bone destructi on. No acute osseous or articular abnormality. IMPRESSION: No acute radiographic abnormality. Electronically signed by: Eldon Rebolledo MD (03/21/2022 4:55 PM) [id number]
== END ==
LOC: KCIC 15:11
PROVIDERS: ATTEND Nurse Practitioner Family
DX: M79.672 Pain in left foot (principal)
CPT/HCPCS: 73630